=== PATIENT | female | born 1965 | race Caucasian/White ===

== ENCOUNTER → 2016-06-14 | Outpatient (CLI) | payer BC ==
[2016-06-14 07:44] LABS: CH 29.6; CHCM 32.9; HCT 39.8 % (34.0-46.0); HDW 2.47; HGB 13.1 gm/dL (11.4-16.0); MCH 29.6 pg (25.0-35.0); MCHC 32.8 g/dL (31.0-37.0); MCV 90.2 fL (80.0-100.0); Mean Platelet Volume 6.3; RBC 4.41 m/uL (3.80-5.40); RDW 12.9 % (11.5-15.5); WBC 4.4 k/uL (3.8-10.6)
[2016-06-14 07:52] LABS: Partial Thromboplastin Time 22.6 sec (22.0-30.0); Prothrombin Time 10.4 sec (9.0-12.0)
[2016-06-14 07:54] LABS: ALT 27 U/L (9-52); AST 15 U/L (14-36); Alkaline Phosphatase 90 U/L (38-126); Anion Gap 9 mmol/L; Blood Urea Nitrogen 14 mg/dL (7-17); Calcium 9.7 mg/dL (8.4-10.2); Carbon Dioxide 29 mmol/L (22-30); Chloride 103 mmol/L (98-107); Cholesterol 212 mg/dL (<200); Glucose 94 mg/dL (74-99); HDL Cholesterol 69 mg/dL (40-60); Magnesium 1.8 mg/dL (1.6-2.3); Non-African American GFR(MDRD) >60 (>60 ml/min/1.73 sqM); Sodium 141 mmol/L (137-145); Total Bilirubin 0.6 mg/dL (0.2-1.3); Total Protein 7.1 g/dL (6.3-8.2); Triglycerides 85 mg/dL (<150)
[2016-06-14 08:39] LABS: Potassium 4.2 mmol/L (3.5-5.1)
--- NOTE | 2016-06-14 09:04 | CT ---
EXAMINATION TYPE: CT abdomen pelvis w con DATE OF EXAM: 06/14/2016 7:40 AM COMPARISON: NONE HISTORY: LLQ pain CT DLP: 3560.8 mGycm Automated exposure control for dose reduction was used. TECHNIQUE: Helical acquisition of images was performed from the lung bases through the pelvis. CONTRAST: Performed with Oral Contrast and with IV Contrast, patient injected with 100 mL of Omnipaque 300. FINDINGS: LUNG BASES: There is some dependent atelectatic changes present at the posterior lung bases. Postop changes present likely status post gastric sleeve. There is a cystic focus present at the leve l of the dome of the diaphragm immediately anterior to the medial aspect of the spleen with some susp ected calcifications within the wall, focus measures 6.7 cm in greatest diameter. Density is slightly higher than simple free fluid. No evident free fluid. LIVER/GB: No significant abnormality is appreciated. PANCREAS: No significant abnormality is seen. SPLEEN: No significant abnormality is seen. ADRENALS: No significant abnormality is seen. KIDNEYS: No significant abnormality is seen. Inferior vena cava filter is present in the infrarenal location. RETROPERITONEAL ADENOPATHY: None visualized REPRODUCTIVE ORGANS: Uterus and adnexal structures are absent. URINARY BLADDER: No significant abnormality is seen. PELVIC ADENOPATHY: None visualized. OSSEOUS STRUCTURES: Degenerative disc changes are present in the visualized spine. Minimal retrolist hesis grade 1 L5-S1, anterolisthesis grade 1 L4-5, vacuum phenomenon present at L5-S1. Facet arthropa thy changes are present resulting in some spinal stenosis at L4-5. BOWEL: Postop changes are noted, correlate for surgical history. No evident bowel obstruction. Appen santos is normal. OTHER: Aorta shows normal caliber. No pneumoperitoneum or ascites. IMPRESSION: POSTOP CHANGES. SPINAL STENOSIS, DEGENERATIVE DISC DISEASE AND FACET ARTHROPATHY. PROBABLE POSTOPERAT NOLBERTO SEROMA IN THE LEFT UPPER QUADRANT.
[2016-06-14 11:08] LABS: Iron 58 ug/dL (37-170)
[2016-06-14 11:18] LABS: Prealbumin 20 mg/dL (18-36); Total Iron Binding Capacity 276 ug/dL (265-497)
[2016-06-14 12:18] LABS: Vitamin B12 237 pg/mL (239-931)
[2016-06-14 13:55] LABS: Hemoglobin A1C 5.3 % (4.2-6.1)
[2016-06-19 14:09] LABS: Selenium 207 mcg/L (63-160)
== END | disposition home or self-care (01) ==
LOC: RADCTMAIN 06:53
PROVIDERS: ATTEND Surgery Plastic and Reconstructive Surgery
DX: R10.32 Left lower quadrant pain (principal); Z98.890 Other specified postprocedural states
CPT/HCPCS: 84255; 84134; 84425; 80061; 80053; 82607; 82728; 83036; 82525; 82746; 83540; 83550; 83735; 84100; 84443; 84590; 84630; 85027; 85610; 85730; 82306; 83970; 74177; 36415; Q9967

== ENCOUNTER → 2016-07-11 | Outpatient (CLI) | payer BC | LOC: LABPAT 08:39 | PROVIDERS: ATTEND Anesthesiology | DX: Z01.818 Encounter for other preprocedural examination (principal) | CPT/HCPCS: 93005 ==

== ENCOUNTER → 2016-07-12 | Day surgery (SDC) | payer BC ==
[2016-07-09 14:58] VITALS: BMI 51.0
[~2016-07-12] MED LIST: ACETAMINOPHEN IV (For NPO) 1,000 MG in EMPTY BAG 1 BAG IVPB ONE; BUPIVACAIN-EPI 0.25%-1:200,000 30 ML VIAL SQ ONE; ENOXAPARIN 40 MG/0.4 ML SYRINGE SQ ONE; GLYCOPYRROLATE 0.2 MG/ML 2 ML VIAL ONE; HYDROcodone/APAP 5-325MG 1 EACH TAB PO ONE; HYDROcodone/APAP 5-325MG 1 EACH TAB PO PRN; LACTATED RINGERS 1,000 ML IV ONE; LACTATED RINGERS 1,000 ML IV SCH; LIDOCAINE 1% 20 ML VIAL (10MG/ML) FOR IV START INTRADERMA ONE; LIDOCAINE 1% INJ 10MG/ML (20 ML MDV) ONE; MIDAZOLAM 2 MG/2 ML VIAL IV PRN; MIDAZOLAM 2 MG/2 ML VIAL ONE; NALOXONE 0.4 MG/ML 1 ML VIAL IV PRN; NEOSTIGMINE 1 MG/ML 10 ML VIAL ONE; ONDANSETRON 4 MG/2 ML VIAL IVP ONE; ONDANSETRON 4 MG/2 ML VIAL IVP PRN; PROPOFOL 10 MG/ML 20 ML VIAL IV ONE; Pre Op ABX Message 1 EACH MISC MISCELLANE ONE; ROCURONIUM BROMIDE 10 MG/ML 10 ML VIAL IV ONE; SCOPOLAMINE 1.5MG/72HR PATCH TRANSDERM ONE; SUCCINYLCHOLINE CHLORIDE 100 MG/5 ML SYR IV ONE; ceFAZolin 3 GM in SODIUM CHLORIDE 0.9% 100 ML IVPB ONE; fentaNYL (PF) 50 MCG/ML 2 ML AMP ONE
--- NOTE | 2016-07-12 08:52 | P.GSHP ---
History of Present Illness H&P Date: 07/12/16 CHIEF COMPLAINT: History of intra-abdominal adhesions HISTORY OF PRESENT ILLNESS: The patient is a 51-year-old female who presents with history of intra-abdominal adhesions from multiple prior surgeries including increasing abdominal pain. She now presents for diagnostic laparoscopy including lysis of adhesions. PAST MEDICAL HISTORY: Please see list. PAST SURGICAL HISTORY: Please see list. MEDICATIONS: Please see list. ALLERGIES: Please see list. SOCIAL HISTORY: No illicit drug use FAMILY HISTORY: No reports of Crohn disease or ulcerative colitis. REVIEW OF ORGAN SYSTEMS: CONSTITUTIONAL: No reports of fevers or chills. GI: Denies any blood in stools or constipation. PHYSICAL EXAM: VITAL SIGNS: Stable GENERAL: Well-developed pleasant and in no acute distress. HEENT: No scleral icterus. Extraocular movements grossly intact. Moist buccal mucosa. NECK: Supple without lymphadenopathy. CHEST: Unlabored respirations. Equal bilateral excursions. CARDIOVASCULAR: Regular rate and rhythm. Distal 2+ pulses. ABDOMEN: Soft, diffuse abdominal tenderness particularly at the left lower quadrant. No peritonitis. MUSCULOSKELETAL: No clubbing, cyanosis, or edema. ASSESSMENT: 1. Diffuse abdominal pain. 2. History of multiple abdominal surgeries. 3. Intra-abdominal adhesions. PLAN: 1. Diagnostic laparoscopy with lysis of adhesions were described in detail including risk of injury to the intestine, need for further surgery, and open technique. 2. DVT prophylaxis. 3. Antibiotic prophylaxis. Past Medical History Past Medical History: Cancer, GERD/Reflux, Hypertension, Pulmonary Embolus (PE) Additional Past Medical History / Comment(s): abd pain,no longer takes RX for htn,varicose veins,judah PEs-08-20-03,uterine CA History of Any Multi-Drug Resistant Organisms: None Reported Past Surgical History: Bariatric Surgery, Hernia Repair, Hysterectomy Additional Past Surgical History / Comment(s): gastric bypass,double hernia repair,tummy tuck Past Anesthesia/Blood Transfusion Reactions: No Reported Reaction Past Psychological History: Depression Smoking Status: Never smoker Past Alcohol Use History: Occasional Past Drug Use History: None Reported - Past Family History Mother Family Medical History: Hypertension Additional Family Medical History / Comment(s): obesity,pulmonary insufficiency Father Family Medical History: Cancer, Hyperlipidemia, Hypertension Additional Family Medical History / Comment(s): prostate Brother(s) Family Medical History: Coronary Artery Disease (CAD), Hypertension Additional Family Medical History / Comment(s): heart stents Medications and Allergies Home Medications Medication Instructions Recorded Confirmed Type Acetaminophen-Codeine 300-30mg 1 tab PO Q6H PRN 07/09/16 07/09/16 History [Tylenol #3] Calcium Carb/Magnesium Cmb #10 1 tab PO DAILY 07/09/16 07/09/16 History [Valente-Mag 500-250 MG Chewable] Cholecalciferol [Vitamin D3] 1,000 unit PO DAILY 07/09/16 07/09/16 History Omeprazole [PriLOSEC] 20 mg PO DAILY PRN 07/09/16 07/09/16 History buPROPion SR [Wellbutrin Sr] 150 mg PO BID 07/09/16 07/09/16 History Allergies Allergy/AdvReac Type Severity Reaction Status Date / Time albuterol Allergy Swelling Verified 07/09/16 14:45 codeine Allergy Anaphylaxis Verified 07/09/16 14:45 erythromycin base Allergy Rapid Verified 07/09/16 15:37 Heart Rate,sweats,shakes,hives gentamicin Allergy Rapid Verified 07/09/16 15:37 Heart Rate,sweats,shakes,hives meperidine [From Demerol] Allergy Anaphylaxis Verified 07/09/16 14:45 vancomycin Allergy Rapid Verified 07/09/16 15:37 Heart Rate,sweats,shakes,hives
--- NOTE | 2016-07-12 12:14 | P.PCN ---
Date of Procedure: 07/12/16 Preoperative Diagnosis: Chronic abdominal pain, history of intra-abdominal adhesions, previous gastric bypass Postoperative Diagnosis: Same, peritoneal adhesions Procedure(s) Performed: Laparoscopic lysis adhesions over 1 hour Anesthesia: ARACELI, local Surgeon: Winnie Saucedo Estimated Blood Loss (ml): 5 Pathology: none sent Condition: stable Disposition: floor Operative Findings: Please see full dictated report. Moderate adhesions of the left lower quadrant at the area of symptomatic pain. Transverse mesocolon found adherent along the epigastrium. Gallbladder and liver unremarkable. Plan - Discharge Summary Discharge Medication List Cyanocobalamin (Vitamin B-12) [Vitamin B12] 5,000 mcg PO DAILY #30 tab.rapdis [Rx] Acetaminophen-Codeine 300-30mg [Tylenol #3] 1 tab PO Q6H PRN 07/09/16 [History] Calcium Carb/Magnesium Cmb #10 [Valente-Mag 500-250 MG Chewable] 1 tab PO DAILY [History] Cholecalciferol [Vitamin D3] 1,000 unit PO DAILY 07/09/16 [History] Omeprazole [PriLOSEC] 20 mg PO DAILY PRN 07/09/16 [History] buPROPion SR [Wellbutrin Sr] 150 mg PO BID 07/09/16 [History]
[2016-07-12 12:34] VITALS: TEMP 98.4
[2016-07-12] MEDS: HYDROmorphone 1 MG/ML 1 ML SYRINGE IVP PRN ×4 (12:35→12:58)
[2016-07-12 14:42] VITALS: BP 133/76
[2016-07-12 15:18] VITALS: PULSE 61; RESP 18
--- NOTE | 2016-07-12 21:55 | OP ---
DATE OF SERVICE: 07/12/2016 SURGEON: ANA BAKER MD MATRIX DRIER TENDER: NONE. PREOPERATIVE DIAGNOSES: 1. Chronic abdominal pain. 2. History of Dwayne-en-Y gastric bypass. 3. Intra-abdominal adhesions. 4. Previous history of incisional ventral hernia repair. 5. History of left lower quadrant abdominal pain. POSTOPERATIVE DIAGNOSES: 1. Chronic abdominal pain. 2. History of Dwayne-en-Y gastric bypass. 3. Intra-abdominal adhesions. 4. Previous history of incisional ventral hernia repair. 5. History of left lower quadrant abdominal pain. OPERATION: Laparoscopic lysis of adhesions, over 1 hour. ANESTHESIA: General with 30 mL 0.25% Marcaine with epinephrine. ESTIMATED BLOOD LOSS: 5 mL. SPECIMENS REMOVED: None. COMPLICATIONS: None. INDICATIONS: Ritu Kellogg is a 51-year-old female who over a decade ago had an open Dwayne-en-Y gastric bypass. She developed an incisional hernia. She had a combined ventral hernia repair with a panniculectomy done years later; however, in the last 1 to 2 years she has noted increased left lower quadrant abdominal pain. With a history of intra-abdominal adhesions, including worsening pain, she had diagnostic studies which were negative for recurrence of hernia; however, she still had persistent symptoms. Surgical intervention with laparoscopic lysis of adhesions and diagnostic laparoscopy were reviewed at length. Benefits and risks of bleeding, infection, injury to bowel were also reviewed. Informed consent was obtained. DESCRIPTION OF PROCEDURE: The patient was brought to the operating room, laid in supine position. After general induction, the abdomen had been prepped and draped in the standard sterile fashion. Prior to incision, a timeout protocol was confirmed with surgical team, including the patient's name and procedure to be performed. Initial attention was brought to the right upper quadrant with her history of Dwayne-en-Y gastric bypass. A 0-degree 5-mm laparoscopic trocar entry was performed and entered the abdomen. The abdomen was insufflated to 15 mmHg pressure, which she tolerated well. Diagnostic laparoscopy demonstrated moderate abdominal adhesions along the midline, including at the left lower quadrant at the patient's location of her pain. The transverse colon was found adherent along the epigastrium. The liver surface was unremarkable. The gallbladder surface was also unremarkable. No evidence of small-bowel dilatation or signs of obstruction were identified along the abdomen. Next, another 5-mm trocar was placed at the right lateral abdominal wall. Another trocar 5 mm was placed along the lower abdomen away from the areas of adhesions. A final 5-mm trocar was placed along the left lower abdomen. Initial lysis of adhesions was performed using blunt dissection, using a kittner including endoscopic scissors. Care was taken to avoid any injury to bowel, viscera or mesentery. Also adhesions along the anterior abdominal wall were consistent with greater omentum to the area of her mesh. Of the left lower quadrant, moderate adhesions involving the greater omentum to the anterior abdominal wall were confirmed. Extensive lysis of adhesions occurred for well over 60 minutes, using a combination of blunt dissection, including sharp dissection, with the endoscopic scissors. Adhesiolysis had occurred up to the epigastrium. Again, moderate adhesion of the transverse mesocolon was found especially adherent along the mesh edge; however, given the moderate adherence, risk of colostomy in continuing with this course in the procedure was identified and further dissection was deferred. As a result, rest of adhesions were addressed without sequelae. Final laparoscopic imaging was obtained, especially of the left lower quadrant, whereby all her symptomatic adhesions were addressed. The rest of the small bowel was evaluated and found to be unremarkable. Again, no evidence of small-bowel obstruction was identified. The stomach was desufflated. The patient had tolerated this procedure well. All instruments and pneumoperitoneum were evacuated. The incisions were re-approximated using 4-0 Monocryl in subcuticular fashion. A total of 30 mL of 0.25% Marcaine with epinephrine infiltrated in all wounds for postop analgesia. Dermabond was applied to the skin. At the end of the procedure, needle, sponge and instrument count were verified by the surgical nurse practitioner. FINDINGS: 1. Moderate left lower quadrant adhesions along the patient's pain of the greater omentum to the anterior abdominal wall from previous mesh. 2. Mesh placement still intact. 3. No overt evidence of recurrent incisional hernia. 4. Transverse colon adherent along the epigastrium undisturbed, given the risk of injury to the bowel. 5. Liver surface and gallbladder unremarkable. [facility]
== END | disposition home or self-care (01) ==
LOC: OR 08:51
PROVIDERS: ATTEND Surgery Plastic and Reconstructive Surgery
DX: K66.0 Peritoneal adhesions (postprocedural) (postinfection) (principal); Z98.84 Bariatric surgery status; K21.9 Gastro-esophageal reflux disease without esophagitis; I10 Essential (primary) hypertension; F32.9 Major depressive disorder, single episode, unspecified; Z86.711 Personal history of pulmonary embolism; Z85.42 Personal history of malignant neoplasm of other parts of uterus; Z79.891 Long term (current) use of opiate analgesic; Z79.899 Other long term (current) drug therapy; Z88.1 Allergy status to other antibiotic agents; Z88.5 Allergy status to narcotic agent; Z88.8 Allergy status to other drugs, medicaments and biological substances; Z72.0 Tobacco use
CPT/HCPCS: 49329; J2250; J2710; J0690; J2405; J2001; J1650; J3010; J1170; J0131; J0330; J2704

== ENCOUNTER 2016-08-28 10:05 | Day surgery (SDC) | payer BC ==
[2016-08-23 15:24] VITALS: BMI 51.0
--- NOTE | 2016-08-28 08:25 | P.GSHP ---
History of Present Illness H&P Date: 08/28/16 CHIEF COMPLAINT: Change in bowel habits HISTORY OF PRESENT ILLNESS: The patient is a 51-year-old female who presents for change in bowel habits. Lower endoscopy was offered for further evaluation and management. PAST MEDICAL HISTORY: Please see list. PAST SURGICAL HISTORY: Please see list. MEDICATIONS: Please see list. ALLERGIES: Please see list. SOCIAL HISTORY: No illicit drug use FAMILY HISTORY: No reports of Crohn disease or ulcerative colitis. REVIEW OF ORGAN SYSTEMS: CONSTITUTIONAL: No reports of fevers or chills. PHYSICAL EXAM: VITAL SIGNS: Stable GENERAL: Well-developed pleasant in no acute distress. HEENT: No scleral icterus. Extraocular movements grossly intact. Moist buccal mucosa. NECK: Supple without lymphadenopathy. CHEST: Unlabored respirations. Equal bilateral excursions. CARDIOVASCULAR: Regular rate and rhythm. Distal 2+ pulses. ABDOMEN: Soft, nontender, nondistended. MUSCULOSKELETAL: No clubbing, cyanosis, or edema. ASSESSMENT: 1. Change in bowel habits PLAN: 1. Recommend proceeding with a lower endoscopy Past Medical History Past Medical History: Cancer, GERD/Reflux, Hyperlipidemia, Hypertension, Pulmonary Embolus (PE) Additional Past Medical History / Comment(s): abd pain,varicose veins,judah PEs-4- 24-,uterine CA History of Any Multi-Drug Resistant Organisms: None Reported Past Surgical History: Bariatric Surgery, Hernia Repair, Hysterectomy Additional Past Surgical History / Comment(s): gastric bypass,double hernia repair,tummy tuck, LYSIS OF ADHESIONS Past Anesthesia/Blood Transfusion Reactions: No Reported Reaction Past Psychological History: Depression Smoking Status: Never smoker Past Alcohol Use History: Occasional Past Drug Use History: None Reported - Past Family History Mother Family Medical History: Hypertension Additional Family Medical History / Comment(s): obesity,pulmonary insufficiency Father Family Medical History: Cancer, Hyperlipidemia, Hypertension Additional Family Medical History / Comment(s): prostate Brother(s) Family Medical History: Coronary Artery Disease (CAD), Hypertension Additional Family Medical History / Comment(s): heart stents Medications and Allergies Home Medications Medication Instructions Recorded Confirmed Type Calcium Carb/Magnesium Cmb #10 1 tab PO DAILY 07/09/16 08/23/16 History [Valente-Mag 500-250 MG Chewable] Cholecalciferol [Vitamin D3] 1,000 unit PO DAILY 07/09/16 08/23/16 History buPROPion SR [Wellbutrin Sr] 150 mg PO BID 07/09/16 08/23/16 History Lisinopril [Lisinopril] 10 mg PO DAILY 08/23/16 08/23/16 History Allergies Allergy/AdvReac Type Severity Reaction Status Date / Time albuterol Allergy Swelling Verified 07/09/16 14:45 codeine Allergy Anaphylaxis Verified 07/09/16 14:45 erythromycin base Allergy Rapid Verified 07/09/16 15:37 Heart Rate,sweats,shakes,hives gentamicin Allergy Rapid Verified 07/09/16 15:37 Heart Rate,sweats,shakes,hives meperidine [From Demerol] Allergy Anaphylaxis Verified 07/09/16 14:45 vancomycin Allergy Rapid Verified 07/09/16 15:37 Heart Rate,sweats,shakes,hives
[~2016-08-28 10:05] MED LIST changes: -ACETAMINOPHEN IV (For NPO) 1,000 MG in EMPTY BAG 1 BAG IVPB ONE; -BUPIVACAIN-EPI 0.25%-1:200,000 30 ML VIAL SQ ONE; -ENOXAPARIN 40 MG/0.4 ML SYRINGE SQ ONE; -GLYCOPYRROLATE 0.2 MG/ML 2 ML VIAL ONE; -HYDROcodone/APAP 5-325MG 1 EACH TAB PO ONE; -HYDROcodone/APAP 5-325MG 1 EACH TAB PO PRN; -LACTATED RINGERS 1,000 ML IV ONE; -LIDOCAINE 1% 20 ML VIAL (10MG/ML) FOR IV START INTRADERMA ONE; +LIDOCAINE 1% 20 ML VIAL (10MG/ML) FOR IV START INTRADERMA PRN; -LIDOCAINE 1% INJ 10MG/ML (20 ML MDV) ONE; -MIDAZOLAM 2 MG/2 ML VIAL IV PRN; -MIDAZOLAM 2 MG/2 ML VIAL ONE; -NALOXONE 0.4 MG/ML 1 ML VIAL IV PRN; -NEOSTIGMINE 1 MG/ML 10 ML VIAL ONE; -ONDANSETRON 4 MG/2 ML VIAL IVP ONE; -ONDANSETRON 4 MG/2 ML VIAL IVP PRN; -PROPOFOL 10 MG/ML 20 ML VIAL IV ONE; -Pre Op ABX Message 1 EACH MISC MISCELLANE ONE; -ROCURONIUM BROMIDE 10 MG/ML 10 ML VIAL IV ONE; -SCOPOLAMINE 1.5MG/72HR PATCH TRANSDERM ONE; -SUCCINYLCHOLINE CHLORIDE 100 MG/5 ML SYR IV ONE; -ceFAZolin 3 GM in SODIUM CHLORIDE 0.9% 100 ML IVPB ONE; -fentaNYL (PF) 50 MCG/ML 2 ML AMP ONE
[2016-08-28 11:04] VITALS: TEMP 98.4
[2016-08-28] MEDS ORDERED: PROPOFOL 10 MG/ML 20 ML VIAL IV ONE (12:04)
[2016-08-28 12:34] VITALS: RESP 18
--- NOTE | 2016-08-28 12:46 | P.PCN ---
Date of Procedure: 08/28/16 Description of Procedure: PREOPERATIVE DIAGNOSIS: Change in bowel habits. Lower abdominal pain. POSTOPERATIVE DIAGNOSIS: Change in bowel habits. Lower abdominal pain. Diverticulosis, scattered. OPERATION: Colonoscopy to the ileocecal valve and appendiceal orifice. SURGEON: Winnie Saucedo MD. ANESTHESIA: MAC. INDICATIONS: The patient is a 61-year-old female who presents for colonoscopy screening. Benefits and risks were described and informed consent was obtained. DESCRIPTION OF PROCEDURE: The patient had undergone Gatorade, MiraLAX and Dulcolax prep. She had been brought into the operating room and laid in the left lateral decubitus position. After adequate intravenous sedation, the rectum was examined with 2% lidocaine jelly. No external hemorrhoids were encountered. The rectal tone was within normal limits. No lesions were palpated in the rectal vault. An Olympus colonoscope was advanced until the ileocecal valve and appendiceal orifice were clearly viewed. The prep was excellent with clear visualization of the mucosal folds. The scope was removed with visualization of each mucosal fold. Scattered diverticulosis was encountered. No colonic polyps were found. No evidence of focal colitis was found. Retroflexion of the scope demonstrated grade 1 internal hemorrhoids without active bleeding or inflammation. The colon was desufflated. The patient had tolerated the procedure well. Withdrawal time was over 6 minutes. FINDINGS: Internal hemorrhoids, grade 1 No external prolapsed hemorrhoids. No arteriovenous malformations. No adenomatous polyps. No focal colitis. RECOMMENDATIONS: Lower endoscopy every 10 years per screening guidelines; however down to 5 years with family history of colon polyps or cancer. Plan - Discharge Summary Discharge Medication List Cyanocobalamin (Vitamin B-12) [Vitamin B12] 5,000 mcg PO DAILY #30 tab.rapdis [Rx] Calcium Carb/Magnesium Cmb #10 [Valente-Mag 500-250 MG Chewable] 1 tab PO DAILY [History] Cholecalciferol [Vitamin D3] 1,000 unit PO DAILY 07/09/16 [History] buPROPion SR [Wellbutrin Sr] 150 mg PO BID 07/09/16 [History] Lisinopril [Lisinopril] 10 mg PO DAILY 08/23/16 [History] Follow up Appointment(s)/Referral(s): Winnie Saucedo MD [STAFF PHYSICIAN] - 09/03/16 Patient Instructions/Handouts: Diverticulosis (GEN) Discharge Disposition: HOME SELF-CARE
[2016-08-28 13:05] VITALS: BP 150/75; PULSE 59
== END 2016-08-28 13:20 | disposition home or self-care (01) ==
LOC: ORWHC2ENDO 10:05
PROVIDERS: ATTEND Surgery Plastic and Reconstructive Surgery
DX: K57.30 Diverticulosis of large intestine without perforation or abscess without bleeding (principal); K64.0 First degree hemorrhoids; I10 Essential (primary) hypertension; F32.9 Major depressive disorder, single episode, unspecified; E66.01 Morbid (severe) obesity due to excess calories; Z68.43 Body mass index [BMI] 50.0-59.9, adult; Z85.42 Personal history of malignant neoplasm of other parts of uterus; Z98.84 Bariatric surgery status; Z79.899 Other long term (current) drug therapy; Z88.1 Allergy status to other antibiotic agents; Z88.5 Allergy status to narcotic agent; Z88.8 Allergy status to other drugs, medicaments and biological substances
CPT/HCPCS: 45378; J2704

== ENCOUNTER 2016-09-06 11:00 | Day surgery (SDC) | payer BC ==
[2016-09-05 09:42] VITALS: BMI 49.8
[~2016-09-06 11:00] MED LIST changes: +DEXAMETHASONE SOD PHOSPHATE 10 MG/ML 1 ML VIAL IV ONE; +HEPARIN SODIUM,PORCINE 5,000 UNIT/ML 1 ML VIAL SQ ONE; -LACTATED RINGERS 1,000 ML IV SCH; -LIDOCAINE 1% 20 ML VIAL (10MG/ML) FOR IV START INTRADERMA PRN; +MIDAZOLAM 2 MG/2 ML VIAL IV PRN; +ONDANSETRON 4 MG/2 ML VIAL IVP ONE; +Pre Op ABX Message 1 EACH MISC MISCELLANE ONE; +SCOPOLAMINE 1.5MG/72HR PATCH TRANSDERM ONE
[2016-09-06] MEDS: LACTATED RINGERS 1,000 ML IV SCH (13:29)
[2016-09-06] MEDS ORDERED: ceFAZolin 2 GM in SODIUM CHLORIDE 0.9% 100 ML IVPB ONE (15:35)
--- NOTE | 2016-09-06 15:38 | P.GSHP ---
History of Present Illness H&P Date: 09/06/16 CHIEF COMPLAINT: Chronic abdominal pain HISTORY OF PRESENT ILLNESS: The patient is a 51-year-old female who presents with chronic abdominal pain as well as a Dwayne-en-Y gastric bypass. His history of severe intra-abdominal adhesions. She now presents bilateral lower abdominal pain Surgical intervention for laparoscopic lysis of adhesions and possible technique. PAST MEDICAL HISTORY: Please see list. PAST SURGICAL HISTORY: Please see list. MEDICATIONS: Please see list. ALLERGIES: Please see list. SOCIAL HISTORY: No illicit drug use FAMILY HISTORY: No reports of Crohn disease or ulcerative colitis. REVIEW OF ORGAN SYSTEMS: CONSTITUTIONAL: No reports of fevers or chills. GI: Denies any blood in stools or constipation. PHYSICAL EXAM: VITAL SIGNS: Stable GENERAL: Well-developed and pleasant in no acute distress. HEENT: No scleral icterus. Extraocular movements grossly intact. Moist buccal mucosa. NECK: Supple without lymphadenopathy. CHEST: Unlabored respirations. Equal bilateral excursions. CARDIOVASCULAR: Regular rate and rhythm. Distal 2+ pulses. ABDOMEN: Soft nondistended tenderness along bilateral lower abdomen. MUSCULOSKELETAL: No clubbing, cyanosis, or edema. ASSESSMENT: 1. Morbid obesity, BMI 50. 2. History gastric bypass. 3. Intra-abdominal adhesions. 4. Chronic abdominal pain. PLAN: 1. Proceed with laparoscopic lysis of adhesions possible open technique and possible bowel resection. 2. DVT prophylaxis. 3. Antibiotic prophylaxis. Past Medical History Past Medical History: Cancer, GERD/Reflux, Hyperlipidemia, Hypertension, Pulmonary Embolus (PE) Additional Past Medical History / Comment(s): abd pain,varicose veins,judah PEs-,uterine CA History of Any Multi-Drug Resistant Organisms: None Reported Past Surgical History: Bariatric Surgery, Hernia Repair, Hysterectomy Additional Past Surgical History / Comment(s): gastric bypass,double hernia repair,tummy tuck, LYSIS OF ADHESIONS Past Anesthesia/Blood Transfusion Reactions: No Reported Reaction Past Psychological History: Depression Smoking Status: Never smoker Past Alcohol Use History: Occasional Past Drug Use History: None Reported - Past Family History Mother Family Medical History: Hypertension Additional Family Medical History / Comment(s): obesity,pulmonary insufficiency Father Family Medical History: Cancer, Hyperlipidemia, Hypertension Additional Family Medical History / Comment(s): prostate Brother(s) Family Medical History: Coronary Artery Disease (CAD), Hypertension Additional Family Medical History / Comment(s): heart stents Medications and Allergies Home Medications Medication Instructions Recorded Confirmed Type Calcium Carb/Magnesium Cmb #10 1 tab PO DAILY 07/09/16 09/06/16 History [Valente-Mag 500-250 MG Chewable] Cholecalciferol [Vitamin D3] 1,000 unit PO DAILY 07/09/16 09/06/16 History buPROPion SR [Wellbutrin Sr] 150 mg PO BID 07/09/16 09/06/16 History Lisinopril [Lisinopril] 10 mg PO DAILY 08/23/16 09/06/16 History Allergies Allergy/AdvReac Type Severity Reaction Status Date / Time albuterol Allergy Swelling Verified 09/06/16 13:39 codeine Allergy Anaphylaxis Verified 09/06/16 13:39 erythromycin base Allergy Rapid Verified 09/06/16 13:39 Heart Rate,sweats,shakes,hives gentamicin Allergy Rapid Verified 09/06/16 13:39 Heart Rate,sweats,shakes,hives meperidine [From Demerol] Allergy Anaphylaxis Verified 09/06/16 13:39 vancomycin Allergy Rapid Verified 09/06/16 13:39 Heart Rate,sweats,shakes,hives Surgical - Exam Vital Signs Temp Pulse Resp BP Pulse Ox 97.0 F L 57 L 17 134/89 99 09/06/16 13:35 09/06/16 13:35 09/06/16 13:35 09/06/16 13:35 09/06/16 13:35
[2016-09-06] MEDS ORDERED: MIDAZOLAM 2 MG/2 ML VIAL ONE (16:08)
[2016-09-06] MEDS ORDERED: NEOSTIGMINE 1 MG/ML 10 ML VIAL ONE (16:08)
[2016-09-06] MEDS ORDERED: LIDOCAINE 1% INJ 10MG/ML (20 ML MDV) ONE (16:08)
[2016-09-06] MEDS ORDERED: ROCURONIUM BROMIDE 10 MG/ML 10 ML VIAL IV ONE (16:08)
[2016-09-06] MEDS ORDERED: fentaNYL (PF) 50 MCG/ML 2 ML AMP ONE (16:08)
[2016-09-06] MEDS ORDERED: GLYCOPYRROLATE 0.2 MG/ML 2 ML VIAL ONE (16:08)
[2016-09-06] MEDS ORDERED: HYDROmorphone (PF) 1 MG/ML ONE (16:08)
[2016-09-06] MEDS ORDERED: PROPOFOL 10 MG/ML 20 ML VIAL IV ONE (16:08)
[2016-09-06] MEDS ORDERED: SUCCINYLCHOLINE CHLORIDE 100 MG/5 ML SYR IV ONE (16:08)
[2016-09-06] MEDS ORDERED: BUPIVACAIN-EPI 0.25%-1:200,000 30 ML VIAL SQ ONE (16:50)
[2016-09-06] MEDS ORDERED: LACTATED RINGERS 1,000 ML IV ONE ×3 (17:08)
[2016-09-06] MEDS ORDERED: ONDANSETRON 4 MG/2 ML VIAL IVP PRN (18:35)
[2016-09-06] MEDS ORDERED: NALOXONE 0.4 MG/ML 1 ML VIAL IV PRN (18:35)
--- NOTE | 2016-09-06 18:42 | P.PCN ---
Date of Procedure: 09/06/16 Preoperative Diagnosis: Chronic abdominal pain, history of gastric bypass Postoperative Diagnosis: Same, multiple endometrial deposits, intussusception right lower quadrant Procedure(s) Performed: Laparoscopic lysis of adhesions over 1-1/2 hours, endometrial ablations 17 bilateral lower abdomen, reduction of intussusception right lower quadrant, appendectomy Anesthesia: ARACELI Surgeon: Winnie Saucedo Estimated Blood Loss (ml): 20 Pathology: other (appendix) Condition: stable Disposition: observation Operative Findings: Multiple adhesions involving the epigastrium, intussusception identified along the right lower quadrant reduced, 17 deposits endometrial along the bilateral lower abdomen, appendix dissected with history of right lower quadrant abdominal pain, right ovary hypotrophic.
[2016-09-06] MEDS: KETOROLAC 30 MG/ML 1 ML VIAL IVP SCH ×2 (19:08→23:34)
[2016-09-06] MEDS: HYDROmorphone 1 MG/ML 1 ML SYRINGE IVP PRN ×2 (19:08→19:14)
[2016-09-06] MEDS ORDERED: ACETAMINOPHEN IV (For NPO) 1,000 MG in EMPTY BAG 1 BAG IVPB ONE (20:00)
--- NOTE | 2016-09-06 21:14 | P.PN ---
Subjective Principal diagnosis: Chronic abdominal pain The patient is status post laparoscopic lysis of adhesions including reduction of intussusception and multiple endometrial ablations with appendectomy. Her pain is well-controlled. Her family is at bedside. Objective - Vital Signs Vital signs: Vital Signs Temp 97.8 F 09/06/16 18:33 Pulse 71 09/06/16 19:15 Resp 16 09/06/16 19:15 BP 140/61 09/06/16 19:15 Pulse Ox 97 09/06/16 19:15 Intake & Output 09/06/16 09/06/16 09/07/16 06:59 18:59 06:59 Intake Total 1800 100 Output Total 250 Balance 1550 100 Weight 119.748 kg Intake: IV 1800 100 Output: Urine 230 Estimated Blood Loss 20 - Exam GENERAL: Well developed and in no acute distress. Pleasant. HEENT: No sclera icterus. Extraocular movements grossly intact. Moist buccal mucosa. Head is atraumatic, normocephalic. Hears conversational speech. No nasal drainage. NECK: Supple without lymphadenopathy. No JV distention. CHEST: Non-labored respirations and equal bilateral excursions. CARDIOVASCULAR: Regular rate and rhythm. Palpable 2+ radial pulses. ABDOMEN: Laparoscopic sites clean dry and intact. No signs of infection. Otherwise soft minimally distended. MUSCULOSKELETAL: No clubbing, cyanosis or edema. NEUROLOGIC: No focal or lateralizing signs. PSYCH: Appropriate affect. Alert and oriented to person, place and time. Assessment and Plan (1) Chronic abdominal pain Status: Acute (2) H/O gastric bypass Status: Acute (3) Peritoneal adhesions Status: Acute (4) Right lower quadrant abdominal pain Status: Acute (5) Left lower quadrant pain Status: Acute (6) Endometriosis determined by laparoscopy Status: Acute (7) Intussusception of jejunum Status: Acute (8) S/P appendectomy Status: Acute (9) Morbid obesity with BMI of 45.0-49.9, adult Status: Acute Plan: 1. Clinically her pain is stable. 2. Recommend hospitalization secondary to history of chronic abdominal pain including extensive lysis of adhesions. 3. Potential discharge home tomorrow with follow-up in the office within 5 days.
[2016-09-06] MEDS: HEPARIN SODIUM,PORCINE 5,000 UNIT/ML 1 ML VIAL SQ SCH (22:22)
[2016-09-06] MEDS: buPROPion SR 150 MG TABLET.ER PO SCH (22:22)
[2016-09-06] MEDS: HYDROcodone/APAP 7.5-325MG 1 EACH TAB PO PRN (22:28)
[2016-09-06] MEDS: ceFAZolin 2 GM in SODIUM CHLORIDE 0.9% 100 ML IVPB SCH (23:35)
[2016-09-07] MEDS: KETOROLAC 30 MG/ML 1 ML VIAL IVP SCH ×2 (05:24→11:01)
[2016-09-07] MEDS: LACTATED RINGERS 1,000 ML IV SCH (05:37)
[2016-09-07] MEDS: HYDROcodone/APAP 7.5-325MG 1 EACH TAB PO PRN ×3 (06:22→14:54)
[2016-09-07 08:15] VITALS: BP 130/63; PULSE 63; RESP 16; TEMP 97.8
[2016-09-07] MEDS: buPROPion SR 150 MG TABLET.ER PO SCH (08:53)
[2016-09-07] MEDS: HEPARIN SODIUM,PORCINE 5,000 UNIT/ML 1 ML VIAL SQ SCH (08:53)
[2016-09-07] MEDS: ceFAZolin 2 GM in SODIUM CHLORIDE 0.9% 100 ML IVPB SCH (08:53)
[2016-09-07] MEDS ORDERED: PANTOPRAZOLE 40 MG/10 ML VIAL IV SCH (09:00)
[2016-09-07] MEDS ORDERED: LISINOPRIL 10 MG TAB PO SCH (09:00)
[2016-09-07] MEDS ORDERED: BISACODYL 10 MG SUPP RECTAL STA (10:46)
[2016-09-07] MEDS ORDERED: BISACODYL 10 MG SUPP RECTAL SCH (21:00)
--- NOTE | 2016-09-10 11:50 | P.PN ---
Progress Note - Text To whom it may concern: Ritu Kellogg is under my surgical care. She has had protracted prior to July 30 preventing her return to work. She will be off work at least through October 11 secondary to recent surgery. Regards, Winnie Saucedo MD, FACS
--- NOTE | 2016-09-14 11:39 | P.OP ---
Date of Procedure: 09/06/16 Description of Procedure: DATE OF SERVICE: 09/06/2016 SURGEON: ANA BAKER MD PREOPERATIVE DIAGNOSES: 1. History of Dwayne-en-Y gastric bypass. 2. Acute and chronic abdominal pain. 3. Left lower quadrant abdominal pain. 4. Right lower quadrant abdominal pain. 5. Personal history of intra-abdominal adhesions. POSTOPERATIVE DIAGNOSES: 1. History of Dwayne-en-Y gastric bypass. 2. Acute and chronic abdominal pain. 3. Left lower quadrant abdominal pain. 4. Right lower quadrant abdominal pain. 5. Personal history of intra-abdominal adhesions. 6. Multiple endometrial implants. 7. Intussusception, right lower quadrant, involving jejunum. 8. Peritoneal adhesions. 9. Morbid obesity, BMI 50. 10. History of hypertension. 11. Appendicitis. OPERATION: 1. Laparoscopic lysis of adhesions over an [id number]-half. 2. Laparoscopic reduction of intussusception, right lower quadrant, jejunum, distal. 3. Endometrial ablations x 17, bilateral lower pelvis. 4. Laparoscopic appendectomy. ANESTHESIA: General with 0.25% Marcaine with epinephrine 30 mL. ESTIMATED BLOOD LOSS: 20 mL SPECIMENS REMOVED: Appendix. COMPLICATIONS: None. OPERATIVE FINDINGS: 1. Moderate adhesions along the epigastrium of transverse colon, ascending colon to the anterior abdominal wall along previous mesh repair released. 2. Area of intussusception of the right lower quadrant corresponding to the distal jejunum, reduced with moderate lysis of adhesions. 3. Multiple endometrial ablations of the bilateral pelvis consistent with patient's area of pain. 4. Patient also reports increasing right lower quadrant abdominal pain, hence, appendectomy also performed. 5. No evidence of Kolb's mesenteric internal hernia. 6. No further internal hernia identified from previous gastric bypass. INDICATIONS: Ritu Kellogg is a 51-year-old female who reports several month history of chronic abdominal pain. Incidentally, she had a recent previous diagnostic laparoscopy and laparoscopic lysis of adhesions which she initially had improvement, however, she states that her pain had started again including now progressed to the right lower abdomen. She had a lower endoscopy without any features of colitis identified. Given the increased severity in nature of her abdominal pain including previous history of gastric bypass, diagnostic laparoscopy was also described at length. Possibility of open surgery as well as small bowel resection were reviewed in detail. Benefits and risks were described. Informed consent was obtained. DESCRIPTION OF PROCEDURE: The patient was brought to the operating room and laid in the supine position. After general anesthesia, a Ornelas catheter was placed. Abdomen had been prepped and draped in standard sterile fashion. Prior to incision, a timeout protocol was confirmed with surgical team regarding the patient's name including procedure to be performed. Along the left upper quadrant the skin was anesthetized. A 0 degree 5 mm laparoscopic trocar entry was performed after incising the skin. Diagnostic laparoscopy demonstrated multiple implants of endometriosis of the bilateral pelvis. Separately, the ascending colon was found adherent and tethered to her previous incisional ventral hernia repair to her mesh. Primarily, the ascending and transverse mesocolon was also found adherent along the epigastrium. Next, two 5 mm trocars were placed along the left lateral abdominal wall under direct visualization. Another two 5 mm trocars were placed along the right lower abdomen. A final 5 mm trocar was placed at the area of the umbilicus for further visualization. Initial attention was brought to the right lower quadrant whereby atraumatic graspers were used to investigate the bowel from proximally to distally. At approximately 100 cm proximal to the ileocecal valve, an area of scarring of previous intussusception was identified. The intussusception was reduced by lysing adhesions around it and then was gently milked from its intussuscepting. Next, proximally the small bowel was ran to the jejunojejunostomy. No evidence of incarcerated internal hernia was identified. Separately along the jejunojejunostomy no bowel dilatation, no signs of obstruction were identified. The liver including majority of the mid transverse mesocolon was found adherent to the epigastrium. These adhesions were very dense. Despite lysis of adhesions well over an qpwg-edm-c-half, this portion of the procedure was then deferred as she denied any epigastric abdominal pain. Attention was now brought to the right upper quadrant whereby the gallbladder was identified and unremarkable in its appearance. The common channel and jejunojejunostomy was again investigated, however, in an anterograde fashion confirming resolution of any internal hernias or volvulus. No further defects were identified. Along the bilateral lower pelvis, multiple endometrial implants of 17 were identified. Using electric Bovie cautery each of the implants were ablated as she reports bilateral lower abdominal pain. Next, as her intussusception as well as adhesions were identified, attention was then brought to the cecum whereby the appendix was still present. With her history of right lower quadrant abdominal pain, decision was made to perform an appendectomy as to address all of her abdominal pain concerns. Of the midline 5 mm port, this was then exchanged for a 12 mm trocar. An Ethicon echelon 60 mm stapler was selected. Carranza load was fired against the base of the appendix. The appendix was removed using a 5 mm Endo Catch bag via the 12 mm port. Hemostasis was checked. No bleeding was identify within the abdominal cavity as all blood was removed from the abdomen using a Ray-Jennifer sponges. The 12 mm port was removed. A 0 Vicryl and Robert Craven was used to close the fascial defect. All instruments and pneumoperitoneum were evacuated from the abdominal cavity and she tolerated pneumo insufflation. The rest of the incisions were infiltrated using local anesthetic. The incisions were reapproximated using 4-0 Monocryl in interrupted subcuticular fashion. Dermabond was placed. At the end of the procedure, needle, sponge and instrument count had been verified correct by certified surgical assistant. Postoperative, she reported improvement of her abdominal pain. Intraoperative findings were described to the patient and family.
== END 2016-09-07 16:41 | disposition home or self-care (01) ==
LOC: OR 11:00 → 3SUR 18:33 → OR 09-07 16:41
PROVIDERS: ATTEND Surgery Plastic and Reconstructive Surgery
DX: K66.0 Peritoneal adhesions (postprocedural) (postinfection) (principal); K56.1 Intussusception; N80.9 Endometriosis, unspecified; K35.80 Unspecified acute appendicitis; R10.32 Left lower quadrant pain; G89.29 Other chronic pain; N83.8 Other noninflammatory disorders of ovary, fallopian tube and broad ligament; Z98.84 Bariatric surgery status; E66.01 Morbid (severe) obesity due to excess calories; Z68.43 Body mass index [BMI] 50.0-59.9, adult; I10 Essential (primary) hypertension; F32.9 Major depressive disorder, single episode, unspecified; Z86.711 Personal history of pulmonary embolism; Z85.42 Personal history of malignant neoplasm of other parts of uterus; Z79.899 Other long term (current) drug therapy; Z79.891 Long term (current) use of opiate analgesic; Z88.1 Allergy status to other antibiotic agents; Z88.5 Allergy status to narcotic agent; Z88.8 Allergy status to other drugs, medicaments and biological substances
CPT/HCPCS: 88304; 88342; 88341; 44238; 49329; 44970; J2250; J1644 ×2; J1100; J2710; S0106 ×2; J0690 ×2; J2405; J2001; J3010; J1885 ×2; J1170; J0131; J0330; J2704; C9113

== ENCOUNTER → 2016-09-18 | Outpatient (CLI) | payer BC ==
[2016-09-18 09:02] LABS: Basophils # (A) 0.1 k/uL (0-0.2); Basophils % (A) 1 %; CH 29.4; CHCM 32.6; Eosinophils # (A) 0.6 k/uL (0-0.7); Eosinophils % (A) 12 %; HCT 40.7 % (34.0-46.0); HDW 2.47; HGB 13.1 gm/dL (11.4-16.0); Luc # (Auto) 0.11; Luc % (Auto) 2; Lymphocytes # (A) 1.6 k/uL (1.0-4.8); Lymphocytes % (A) 32 %; MCH 29.2 pg (25.0-35.0); MCHC 32.2 g/dL (31.0-37.0); MCV 90.6 fL (80.0-100.0); Mean Platelet Volume 6.3; Monocytes # (A) 0.2 k/uL (0-1.0); Monocytes % (A) 4 %; Neutrophils # (A) 2.5 k/uL (1.3-7.7); Neutrophils % (A) 49 %; RBC 4.49 m/uL (3.80-5.40); WBC (Perox) 5.02
--- NOTE | 2016-09-18 10:12 | CT ---
EXAMINATION TYPE: CT abdomen pelvis w con DATE OF EXAM: 09/18/2016 9:15 AM REFERENCE: Previous study dated 06/14/2016 HISTORY: R10.9 abdominal pelvic pain HISTORY: RLQ pain CT DLP: 3444.3 mGy Automated exposure control for dose reduction was used. TECHNIQUE: Helical acquisition through the abdomen and pelvis was obtained following the oral ingesti on of with Oral Contrast and following intravenous administration of 100 mL of Omnipaque 300. The shen a was reformatted in axial, coronal and sagittal projections. FINDINGS: There is minimal dependent atelectasis at the lung bases. There is no pleural or pericardi al fluid. The heart is mildly enlarged. Within the abdomen, there is been previous gastric surgery. There is a stable rounded and partially c alcified fluid collection adjacent to the spleen. This measures 6.1 cm and likely represents a postop erative seroma. The liver is mildly prominent measuring 21 cm. The spleen and gallbladder appear normal. Both adrenal glands appear normal. Both kidneys demonstrate function and appear morphologically normal. The pancreas is unremarkable. There is no significant retroperitoneal, iliac or inguinal adenopathy. There is inferior vena cava fi lter in place. The bladder is unremarkable. The uterus and ovaries are not visualized. There is collapse of the distal descending colon and sigmoid colon. This makes it difficult to assess wall thickness. The appendix is not visualized. Small bowel loops appear normal. There is some scarring in the anterior abdominal wall. There is no free fluid and no free air. 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 There is facet arthropathy in the l ower lumbar spine. There is disc space loss at L4-5 and L5-S1 with a vacuum phenomena present at L5-S 1. IMPRESSION: 1. POSTSURGICAL CHANGE. 2. MILD HEPATOMEGALY. 3. POSTOPERATIVE SEROMA IN THE LEFT UPPER QUADRANT. 4. COLLAPSE OF THE DISTAL DESCENDING COLON AND SIGMOID COLON. PLEASE CORRELATE FOR COLITIS. 5. DEGENERATIVE CHANGES WITHIN THE LUMBAR SPINE AND FORESTIER'S DISEASE WITHIN THE DORSAL SPINE.
== END | disposition home or self-care (01) ==
LOC: RADCTMAIN 08:26
PROVIDERS: ATTEND Surgery Plastic and Reconstructive Surgery
DX: R16.0 Hepatomegaly, not elsewhere classified (principal); K91.872 Postprocedural seroma of a digestive system organ or structure following a digestive system procedure; K63.89 Other specified diseases of intestine; Z98.890 Other specified postprocedural states
CPT/HCPCS: 85025; 74177; Q9967

== ENCOUNTER → 2016-10-04 | Outpatient (CLI) | payer BC ==
--- NOTE | 2016-10-04 13:06 | US ---
EXAMINATION TYPE: US gallbladder DATE OF EXAM: 10/04/2016 COMPARISON: Previous CT scan of the abdomen and pelvis dated 09/18/2016. CLINICAL HISTORY: R1084 generalized abd pain. EXAM MEASUREMENTS: Liver Length: 14.6 cm Gallbladder Wall: 0.1 cm CBD: 0.5 cm Right Kidney: 10.8 x 4.6 x 5.2 cm Pancreas: Obscured by bowel gas Liver: Technically challenging study. Liver views best in intercostal spaces due to body habitus, gas and high position of liver. Appears homogeneous. Gallbladder: No stones seen Evidence for sonographic Turner's sign: No CBD: wnl Right Kidney: No hydronephrosis or masses seen Essentially normal exam Pancreas not visualized. Liver is normal in size. It is echogenic and may be fatty infiltrated. The gallbladder is normal. The gallbladder wall measures 1 mm. The distal common hepatic duct measure s 5 mm. The right kidney is normal. IMPRESSION: I CANNOT EXCLUDE SOME FATTY INFILTRATION OF THE LIVER.
--- NOTE | 2016-10-04 15:06 | NM ---
EXAMINATION TYPE: NM hepatobiliary w EF DATE OF EXAM: 10/04/2016 COMPARISON: NONE HISTORY: Generalized and right upper quadrant pain TECHNIQUE: After the intravenous administration of 5.5 mCi Tc 99m Mebrofenin hepatobiliary scintigrap hy is performed. Immediate images post injection. FINDINGS: There is satisfactory initial accumulation of tracer by the liver. The gallbladder is visualized wit hin 22 minutes. The small bowel activity is noted within 26 minutes. At one hour 8 ounces of oral e nsure plus is given to mimic CCK and gallbladder ejection fraction is calculated at 93 %, abnormally high. The patient experienced nausea and lightheaded after the ingestion of ensure. IMPRESSION: Hypocontractility of the gallbladder
== END | disposition home or self-care (01) ==
LOC: RADUSMAIN 12:06
PROVIDERS: ATTEND Surgery Plastic and Reconstructive Surgery
DX: N32.89 Other specified disorders of bladder (principal); R10.31 Right lower quadrant pain
CPT/HCPCS: 76705; 78226; A9537

== ENCOUNTER 2016-11-04 07:01 | Day surgery (SDC) | payer BC ==
[2016-11-01 08:28] VITALS: BMI 50.4
[~2016-11-04 07:01] MED LIST changes: +LACTATED RINGERS 1,000 ML IV SCH; -Pre Op ABX Message 1 EACH MISC MISCELLANE ONE; +ceFAZolin 2 GM in SODIUM CHLORIDE 0.9% 100 ML IVPB ONE
[2016-11-04] MEDS ORDERED: ACETAMINOPHEN IV (For NPO) 1,000 MG in EMPTY BAG 1 BAG IVPB ONE (07:42)
--- NOTE | 2016-11-04 07:42 | P.GSHP ---
History of Present Illness H&P Date: 11/04/16 CHIEF COMPLAINT: Cholecystitis HISTORY OF PRESENT ILLNESS: The patient is a 51-year-old female who presents with history of epigastric including right upper quadrant abdominal pain. She underwent diagnostic studies for her gallbladder. Separately her clinical picture was consistent with cholecystitis. Now she presents for surgical intervention. PAST MEDICAL HISTORY: Please see list PAST SURGICAL HISTORY: Please see list MEDICATIONS: Please see list ALLERGIES: Denies. SOCIAL HISTORY: No illicit drug use or recent tobacco use FAMILY HISTORY: Pertinent for gallbladder disease REVIEW OF ORGAN SYSTEMS: CONSTITUTIONAL: No reports of fevers or chills. HEENT: Denies any troubles with the vision or hearing. ENDOCRINE: No reports of hypothyroidism. No diabetes. RESPIRATORY: No recent pneumonias. CARDIOVASCULAR: Denies chest pain or palpitations GI: No blood in stools or constipation. MUSCULOSKELETAL: Has occasional joint pain including back pain. NEURO: No seizure disorders or headaches. No recent stroke. PSYCH: No depression or suicidal ideation. HEMATOLOGIC: No personal or family history of DVTs or pulmonary emboli. PHYSICAL EXAM: VITAL SIGNS: Afebrile vital signs stable GENERAL: Well-developed pleasant in no acute distress. HEENT: No scleral icterus. Extraocular movements grossly intact. Moist buccal mucosa. NECK: Supple without lymphadenopathy. CHEST: Unlabored respirations. Equal bilateral excursions. CARDIOVASCULAR: Regular rate regular rhythm rhythm. Distal 2+ pulses. ABDOMEN: Soft, nondistended. Tender along the epigastrium and right upper quadrant. MUSCULOSKELETAL: No clubbing, cyanosis, or edema. NEURO: Cranial nerves II to XII within normal limits. No focal or lateralizing signs. PSYCH: Alert and oriented to person, place and time. ASSESSMENT: 1. Epigastric and right upper quadrant abdominal pain 2. Chronic cholecystitis 3. History of intra-abdominal adhesions. PLAN: 1. Will need a laparoscopic cholecystectomy possible open. Benefits and risks were described. 2. Heparin for DVT prophylaxis 5000 units. 3. Antibiotic prophylaxis. Past Medical History Past Medical History: Cancer, GERD/Reflux, Hyperlipidemia, Hypertension, Pulmonary Embolus (PE) Additional Past Medical History / Comment(s): abd pain,varicose veins,judah PEs-4- 24-04,uterine CA, gallbladder disorder History of Any Multi-Drug Resistant Organisms: None Reported Past Surgical History: Appendectomy, Bariatric Surgery, Hernia Repair, Hysterectomy Additional Past Surgical History / Comment(s): gastric bypass,double hernia repair,tummy tuck, lysis of adhesions, endometrial ablations x 17 spots bilat lower abd. area, reduction of intussusception RLQ-09/06/16 Past Anesthesia/Blood Transfusion Reactions: No Reported Reaction Smoking Status: Never smoker - Past Family History Mother Family Medical History: Cancer, Hypertension Additional Family Medical History / Comment(s): obesity,pulmonary insufficiency Father Family Medical History: Cancer, Hyperlipidemia, Hypertension Additional Family Medical History / Comment(s): prostate Brother(s) Family Medical History: Coronary Artery Disease (CAD), Hypertension Additional Family Medical History / Comment(s): heart stents Medications and Allergies Home Medications Medication Instructions Recorded Confirmed Type Calcium Carb/Magnesium Ox,Carb 1 tab PO DAILY 07/09/16 11/01/16 History [Valente-Mag 500-250 MG Chewable] Cholecalciferol [Vitamin D3] 1,000 unit PO DAILY 07/09/16 11/01/16 History buPROPion SR [Wellbutrin Sr] 150 mg PO BID 07/09/16 11/01/16 History Lisinopril [Lisinopril] 10 mg PO DAILY 08/23/16 11/01/16 History Allergies Allergy/AdvReac Type Severity Reaction Status Date / Time albuterol Allergy Swelling Verified 11/01/16 08:14 cimetidine Allergy Rash/Hives Verified 11/01/16 08:14 codeine Allergy Anaphylaxis Verified 11/01/16 08:14 erythromycin base Allergy Rapid Verified 11/01/16 08:14 Heart Rate,sweats,shakes,hives gentamicin Allergy Rapid Verified 11/01/16 08:14 Heart Rate,sweats,shakes,hives meperidine [From Demerol] Allergy Anaphylaxis Verified 11/01/16 08:14 vancomycin Allergy Rapid Verified 11/01/16 08:14 Heart Rate,sweats,shakes,hives Surgical - Exam Vital Signs Temp Pulse Resp BP Pulse Ox 97.1 F L 64 18 152/76 98 11/04/16 07:37 11/04/16 07:37 11/04/16 07:37 11/04/16 07:37 11/04/16 07:37
[2016-11-04] MEDS ORDERED: LIDOCAINE 1% 20 ML VIAL (10MG/ML) FOR IV START INTRADERMA ONE (07:54)
[2016-11-04] MEDS ORDERED: MIDAZOLAM 2 MG/2 ML VIAL ONE (09:28)
[2016-11-04] MEDS ORDERED: LIDOCAINE 1% INJ 10MG/ML (20 ML MDV) ONE (09:28)
[2016-11-04] MEDS ORDERED: KETOROLAC 30 MG/ML 1 ML VIAL ONE (09:28)
[2016-11-04] MEDS ORDERED: ROCURONIUM BROMIDE 10 MG/ML 10 ML VIAL IV ONE (09:28)
[2016-11-04] MEDS ORDERED: SUCCINYLCHOLINE CHLORIDE VIAL 200 MG/10 ML VIAL IV ONE (09:28)
[2016-11-04] MEDS ORDERED: fentaNYL (PF) 50 MCG/ML 2 ML AMP ONE (09:28)
[2016-11-04] MEDS ORDERED: NEOSTIGMINE 1 MG/ML 10 ML VIAL ONE (09:28)
[2016-11-04] MEDS ORDERED: GLYCOPYRROLATE 0.2 MG/ML 2 ML VIAL ONE (09:28)
[2016-11-04] MEDS ORDERED: BUPIVACAIN-EPI 0.5%-1:200,000 30 ML VIAL SQ ONE (09:47)
--- NOTE | 2016-11-04 10:30 | P.OP ---
Date of Procedure: 11/04/16 Preoperative Diagnosis: Postoperative Diagnosis: Procedure(s) Performed: Implants: Indications for Procedure: Operative Findings: Description of Procedure: SURGEON: WINNIE SAUCEDO MD INFORMATION TECHNOLOGY OFFICER: None. PREOPERATIVE DIAGNOSES: 1. Chronic Cholecystitis. 2. Right upper quadrant abdominal pain. 3. Morbid obesity, BMI 50.4. 4. History of chronic abdominal pain. 5. Previous history of gastric bypass. 6. Multiple abdominal adhesions. 7. Hypertension. 8. Depression. POSTOPERATIVE DIAGNOSES: 1. Chronic Cholecystitis. 2. Right upper quadrant abdominal pain. 3. Morbid obesity, BMI 50.4. 4. History of chronic abdominal pain. 5. Previous history of gastric bypass. 6. Multiple abdominal adhesions. 7. Hypertension. 8. Depression. OPERATION: Laparoscopic cholecystectomy ANESTHESIA: General with 30 mL 0.50 % Marcaine with epinephrine. ESTIMATED BLOOD LOSS: 5 mL. SPECIMENS REMOVED: Gallbladder. COMPLICATIONS: None. INDICATIONS: The patient is a 51-year-old female who presents with chronic cholelcystitis. Surgical intervention with a laparoscopic cholecystectomy was described at length including injury to the biliary tree, bleeding, infection, need for further surgery. Informed consent was obtained. DESCRIPTION OF THE PROCEDURE: The patient was brought to the operating room, laid in supine position. After general induction, the abdomen was prepped and draped in a standard sterile fashion. Prior to incision, a timeout protocol was confirmed with surgical team regarding patient's name, procedure to be performed including preoperative medications for which she had received heparin 5000 units subcutaneously as well as bilateral SCDs for DVT prophylaxis. A transverse 5 mm incision was made at the left upper quadrant. Please note the skin was localized prior to incision. A 0 degree 5-mm laparoscopic trocar entry was performed and entered into the peritoneal cavity. Diagnostic laparoscopy confirmed no injury to bowel, viscera or mesentery. Severe adhesions of the transverse colon along the epigastrium was identified involving the entire length. No adhesions were found along the lower abdomen or pelvis. The gallbladder wall was thickened with adhesions along the infundibulum consistent with chronic cholecystitis. The liver serosa was completely unremarkable. Next, two 5 mm trocars were placed along the right costal margin followed by a 11 mm port at the right of the mid abdomen. The patient was placed in steep reverse Trendelenburg position with the right side up. The gallbladder fundus was retracted over the dome of the liver. Initial attention was brought to the infundibulum which was gently retracted in the inferior lateral approach. Using a Kittner, the cystic duct including the cystic artery was carefully skeletonized. Using a large clip user experience architect 3 clips were placed proximally, and 1 clip was placed distally along the cystic duct and then cut. Again care was taken to avoid any injury to the biliary tree as the common bile duct was clearly visualized during this portion of dissection. Next, the cystic artery was clipped twice proximally, once distally and then cauterized. Electro-Bovie cautery was used to remove the gallbladder from the hepatic fossa without decompression of the gallbladder. Hemostasis was checked and found to be adequate. The gallbladder was removed from the abdominal cavity using an Endo Catch bag and passed off for further pathological analysis. All instruments and pneumoperitoneum were removed from the abdominal cavity. The fascial defect was less than 8 mm for the 11-mm port site. The rest of incisions were reapproximated using 4-0 Monocryl in an interrupted subcuticular fashion. A total of 30 mL of 0.50% Marcaine with epinephrine was infiltrated to all wounds for postop analgesia. Dermabond was applied to the skin. At the end of the procedure, needle, sponge, and instrument count was verified correct by surgical manager. The patient had tolerated the procedure well and was taken to postanesthesia care unit in stable condition. Intraoperative films were discussed and reviewed with the patient's family who were pleased with the level of care. FINDINGS: 1. Chronic cholecystitis. 2. Unremarkable liver surface. 3. No recurrent adhesions of the lower pelvis. 4. No small bowel dilatation. Plan - Discharge Summary New Discharge Prescriptions: No Action Cyanocobalamin (Vitamin B-12) [Vitamin B12] 5,000 mcg PO DAILY #30 tab.rapdis Calcium Carb/Magnesium Ox,Carb [Valente-Mag 500-250 MG Chewable] 1 tab PO DAILY Cholecalciferol [Vitamin D3] 1,000 unit PO DAILY buPROPion SR [Wellbutrin Sr] 150 mg PO BID Lisinopril [Lisinopril] 10 mg PO DAILY HYDROcodone/APAP 7.5-325MG [[place] 7.5-325] 1 each PO Q4H PRN #60 tab PRN Reason: Pain Discharge Medication List Cyanocobalamin (Vitamin B-12) [Vitamin B12] 5,000 mcg PO DAILY #30 tab.rapdis [Rx] Calcium Carb/Magnesium Ox,Carb [Valente-Mag 500-250 MG Chewable] 1 tab PO DAILY [History] Cholecalciferol [Vitamin D3] 1,000 unit PO DAILY 07/09/16 [History] buPROPion SR [Wellbutrin Sr] 150 mg PO BID 07/09/16 [History] Lisinopril [Lisinopril] 10 mg PO DAILY 08/23/16 [History] HYDROcodone/APAP 7.5-325MG [[place] 7.5-325] 1 each PO Q4H PRN #60 tab 09/10/16 [ Rx] Follow up Appointment(s)/Referral(s): Winnie Saucedo MD [STAFF PHYSICIAN] - 11/12/16 Patient Instructions/Handouts: Low Fat Diet (DC), Laparoscopic Cholecystectomy (DC) Activity/Diet/Wound Care/Special Instructions: No lifting over 5 pounds in 1 week. Low-fat diet. May shower. No baths or soaks. Discharge Disposition: HOME SELF-CARE
[2016-11-04] MEDS ORDERED: HYDROcodone/APAP 5-325MG 1 EACH TAB PO PRN (10:33)
[2016-11-04] MEDS ORDERED: ONDANSETRON 4 MG/2 ML VIAL IVP PRN (10:33)
[2016-11-04] MEDS: HYDROmorphone 1 MG/ML 1 ML SYRINGE IVP PRN ×4 (10:33→11:03)
[2016-11-04] MEDS ORDERED: NALOXONE 0.4 MG/ML 1 ML VIAL IV PRN (10:33)
[2016-11-04 10:42] VITALS: TEMP 97.2
[2016-11-04] MEDS ORDERED: KETOROLAC 30 MG/ML 1 ML VIAL IVP ONE (11:06)
[2016-11-04] MEDS ORDERED: ONDANSETRON 4 MG/2 ML VIAL IVP ONE (11:11)
[2016-11-04] MEDS: HYDROmorphone 1 MG/ML 1 ML SYRINGE IVP ONE ×2 (11:27→11:36)
[2016-11-04] MEDS ORDERED: HYDROcodone/APAP 7.5-325MG 1 EACH TAB PO ONE (12:00)
[2016-11-04 12:12] VITALS: BP 110/55; PULSE 64; RESP 18
== END 2016-11-04 12:41 | disposition home or self-care (01) ==
LOC: OR 07:01
PROVIDERS: ATTEND Surgery Plastic and Reconstructive Surgery
DX: K81.1 Chronic cholecystitis (principal); K66.0 Peritoneal adhesions (postprocedural) (postinfection); E66.01 Morbid (severe) obesity due to excess calories; Z68.43 Body mass index [BMI] 50.0-59.9, adult; Z79.899 Other long term (current) drug therapy; Z98.84 Bariatric surgery status; Z86.711 Personal history of pulmonary embolism; I10 Essential (primary) hypertension; F32.9 Major depressive disorder, single episode, unspecified; E78.5 Hyperlipidemia, unspecified; Z88.1 Allergy status to other antibiotic agents; Z88.5 Allergy status to narcotic agent; Z88.8 Allergy status to other drugs, medicaments and biological substances
CPT/HCPCS: 93005; 88304; 47562; J2250; J0330; J1644; J1100; J2710; J0690; J2405; J2001; J3010; J1885; J1170; J0131

== ENCOUNTER → 2016-12-24 | Outpatient (CLI) | payer BC ==
[2016-12-24 17:01] LABS: CH 30.7; CHCM 32.9; HCT 40.3 % (34.0-46.0); HDW 2.39; HGB 12.9 gm/dL (11.4-16.0); MCH 29.9 pg (25.0-35.0); MCHC 31.9 g/dL (31.0-37.0); MCV 93.7 fL (80.0-100.0); RDW 13.5 % (11.5-15.5); WBC 5.2 k/uL (3.8-10.6)
[2016-12-24 17:17] LABS: ALT 28 U/L (9-52); AST 14 U/L (14-36); Alkaline Phosphatase 82 U/L (38-126); Anion Gap 10 mmol/L; Blood Urea Nitrogen 12 mg/dL (7-17); Calcium 9.3 mg/dL (8.4-10.2); Carbon Dioxide 26 mmol/L (22-30); Chloride 106 mmol/L (98-107); Glucose 110 mg/dL (74-99); Magnesium 1.8 mg/dL (1.6-2.3); Non-African American GFR(MDRD) >60 (>60 ml/min/1.73 sqM); Phosphorous 4.4 mg/dL (2.5-4.5); Potassium 4.2 mmol/L (3.5-5.1); Sodium 142 mmol/L (137-145); Total Bilirubin 0.3 mg/dL (0.2-1.3); Total Protein 6.5 g/dL (6.3-8.2)
[2016-12-24 17:26] LABS: Total Iron Binding Capacity 258 ug/dL (265-497)
[2016-12-24 18:23] LABS: Vitamin B12 270 pg/mL (239-931)
[2016-12-24 21:00] LABS: Hemoglobin A1C 5.5 % (4.2-6.1)
[2016-12-25 10:59] LABS: Cholesterol 193 mg/dL (<200); HDL Cholesterol 56 mg/dL (40-60)
== END | disposition home or self-care (01) ==
LOC: LABWHC1 16:40
PROVIDERS: ATTEND Surgery Plastic and Reconstructive Surgery
DX: E66.01 Morbid (severe) obesity due to excess calories (principal)
CPT/HCPCS: 36415; 80053; 80061; 82306; 82525; 82607; 82746; 83036; 83550; 83735; 83970; 84100; 84134; 84255; 84425; 84443; 84590; 84630; 85027

== ENCOUNTER → 2024-09-29 | Outpatient (CLI) | payer MEDICARE ==
[2024-09-29 16:16] VITALS: BP 126/80; PULSE 56; RESP 16; TEMP 97.7; BMI 65.0
--- NOTE | 2024-09-29 16:43 | P.HPBAR ---
Bariatric H&P - History & Physicial H&P Date: 09/29/24 History & Physicial: Visit/CC: new Patient initial contact: Initial weight: Initial weight in pounds: Height: 5 ft 1 in Initial BMI: Last weight: Current weight: 156.036 kg Current weight in pounds: 344.00 Current BMI: 65.0 [place] body weight (based on NIH guidelines): 47.72 kg Excess body weight loss: The patient is a 59 year-old F who presents for Bariatric Assessment. Left knee was done in 2022. Had a heart attack June 2023. Needs Right but gained too much weight. Was in [facility] and had her surgeries. She cannot get surgery. She moved back for family. PCP macy She was on ozempic. Needs labs. She needs labs, she reports emotional eating, she reports depressed. My fitness pal. Past Medical History Past Medical History: Cancer, GERD/Reflux, Hyperlipidemia, Hypertension, Myocardial Infarction ([place]), Pulmonary Embolus (PE) Additional Past Medical History / Comment(s): abd pain,varicose veins,judah PEs-08-20-03,uterine CA, gallbladder disorder Last Myocardial Infarction Date:: 07/03/2023 History of Any Multi-Drug Resistant Organisms: None Reported Past Surgical History: Appendectomy, Bariatric Surgery, Cholecystectomy, Heart Catheterization, Hernia Repair, Hysterectomy, Joint Replacement Additional Past Surgical History / Comment(s): gastric bypass,double hernia repair,tummy tuck, lysis of adhesions, endometrial ablations x 17 spots bilat lower abd. area, reduction of intussusception RLQ-09/06/16, Left Total Knee replacement 2022, Past Anesthesia/Blood Transfusion Reactions: No Reported Reaction Past Psychological History: Depression Smoking Status: Never smoker Past Alcohol Use History: Occasional Past Drug Use History: None Reported - Past Family History Mother Family Medical History: Cancer, Hypertension Additional Family Medical History / Comment(s): obesity,pulmonary insufficiency Father Family Medical History: Cancer, Hyperlipidemia, Hypertension Additional Family Medical History / Comment(s): prostate Brother(s) Family Medical History: Coronary Artery Disease (CAD), Hypertension Additional Family Medical History / Comment(s): heart stents Surgical - Exam Vital Signs Temp Pulse Resp BP 97.7 F 56 L 16 126/80 09/29/24 15:53 09/29/24 15:53 09/29/24 15:53 09/29/24 15:53 Bariatric Checklist Checklist: Plan: Checklist: EGD: 1. Hiatal hernia: 2. H. Pylori: HgbA1c: Vitamin D: Smoking: Never smoker Primary care physician referral: Macy Perez Psychiatry clearance: Cardiology clearance: Sleep study: Diet journal: VTE risk score: VTE risk level: Rehab needs at discharge:
== END ==
LOC: BARWHC3 15:17
PROVIDERS: ATTEND Surgery Plastic and Reconstructive Surgery
DX: E66.01 Morbid (severe) obesity due to excess calories
CPT/HCPCS: 99202

== ENCOUNTER → 2024-10-04 | Outpatient (CLI) | payer MEDICARE ==
[2024-10-04 10:21] LABS: Partial Thromboplastin Time 22.5 sec (22.0-30.0); Prothrombin Time 10.7 sec (10.0-12.5)
[2024-10-04 15:19] LABS: HCT 41.7 % (37.2-46.3); HGB 12.9 g/dL (12.0-15.0); MCH 28.9 pg (27.0-32.0); MCHC 30.9 g/dL (32.0-37.0); MCV 93.3 FL (80.0-97.0); Mean Platelet Volume 9.6 FL (9.5-12.2); NRBC Per 100 WBC 0 X 10*3/uL (0.00-0.01); Platelet Count 308 X 10*3/uL (140-440); RBC 4.47 X 10*6/uL (4.10-5.20); RDW 14.2 % (11.5-14.5); WBC 5.02 X 10*3/uL (4.50-10.00)
[2024-10-04 15:46] LABS: % Iron Saturation 23.89 (12.00-45.00); ALT 16 U/L (8-44); AST 15 U/L (13-35); Albumin 3.7 g/dL (3.8-4.9); Albumin/Globulin Ratio 1.85 Ratio (1.60-3.17); Alkaline Phosphatase 123 U/L (41-126); BUN/Creat Ratio 9.78 Ratio (12.00-20.00); Blood Urea Nitrogen 8.8 mg/dL (9.0-27.0); Calcium 8.9 mg/dL (8.7-10.3); Carbon Dioxide 26.9 mmol/L (21.6-31.8); Chloride 107 mmol/L (96-109); Chol/HDL Ratio 2.92 Ratio; Glucose 109 mg/dL (70-110); Iron 75 UG/DL (50-170); LDL Cholesterol,Calculated 89.8 mg/dL (0.0-131.0); Magnesium 1.9 mg/dL (1.5-2.4); Phosphorus 2.8 mg/dL (2.4-5.1); Potassium 4.6 mmol/L (3.5-5.5); Sodium 143 mmol/L (135-145); Total Bilirubin 0.4 mg/dL (0.3-1.2); Total Iron Binding Capacity 314 UG/DL (228-460); Total Protein 5.7 g/dL (6.2-8.2)
[2024-10-04 15:47] LABS: Ferritin 33.7 ng/mL (10.0-291.0)
[2024-10-05 12:22] LABS: Zinc, Serum 69 ug/dL (60-130)
== END | disposition home or self-care (01) ==
LOC: LABWHC1 08:47
PROVIDERS: ATTEND Surgery Plastic and Reconstructive Surgery
DX: E55.9 Vitamin D deficiency, unspecified (principal); E89.1 Postprocedural hypoinsulinemia; E66.01 Morbid (severe) obesity due to excess calories; E45 Retarded development following protein-calorie malnutrition; E44.0 Moderate protein-calorie malnutrition; D50.8 Other iron deficiency anemias; D50.9 Iron deficiency anemia, unspecified; K74.1 Hepatic sclerosis; N19 Unspecified kidney failure; K50.90 Crohn's disease, unspecified, without complications; T56.894A Toxic effect of other metals, undetermined, initial encounter
CPT/HCPCS: 36415; 80053; 80061; 80307; 80323; 82306; 82525; 82607; 82728; 82746; 83036; 83540; 83550; 83735; 83970; 84100; 84134; 84255; 84425; 84443; 84590; 84630; 85027; 85610; 85730; 93005